=== PATIENT | female | born 1960 | race Caucasian/White ===

== ENCOUNTER 2019-12-24 00:58 | Emergency (ER) | payer MEDICARE, SELFPAY ==
--- NOTE | ~2019-12-24 | XR_ITS ---
EXAMINATION: XR hand RT min 3V DATE: 12/24/2019 01:25 INDICATION: Right hand pain. TECHNIQUE: 3 views of right hand were obtained. COMPARISON: None. FINDINGS: Bone alignment is normal. No fracture. There is a benign bone island in third distal phalan x. There is severe osteoarthritis of triscaphe joint and mild osteoarthritis of first carpometacarpal joint, first interphalangeal joint, and second, third, and fifth distal interphalangeal joints IMPRESSION: 1. Polyarticular osteoarthritis. Reviewed, dictated and finalized at location A.
--- NOTE | ~2019-12-24 | XR_ITS ---
EXAMINATION: XR wrist RT min 3V DATE: 12/24/2019 01:25 INDICATION: Right wrist pain. Fall. TECHNIQUE: 4 views of right wrist were obtained. COMPARISON: None. FINDINGS: Bone alignment is normal. No acute fracture. There is likely an old healed fracture of diap hysis of fifth metacarpal. There is severe osteoarthritis of triscaphe joint and mild osteoarthritis of first carpometacarpal joint. IMPRESSION: 1. Polyarticular osteoarthritis. Reviewed, dictated and finalized at location A.
--- NOTE | 2019-12-24 01:04 | ED.GENADULT ---
HPI - General Adult General Chief complaint: Extremity Injury, Upper Stated complaint: fall/ wrist pain Time Seen by Provider: 12/24/19 01:00 Source: patient Mode of arrival: ambulatory Limitations: no limitations History of Present Illness HPI narrative: Patient is a 59-year-old female with a history of rheumatoid arthritis who presents for evaluation of right wrist pain. Patient states she went to take out the garbage this morning, when she tripped on her dog, hit her right hand on the deck railing and then fell on an outstretched hand. She reports pain which is moderate in nature, worse with movement in her right hand and right wrist. She reports mild swelling, no redness. She has a scrape at her elbow, no elbow pain. She denies head trauma, loss of consciousness, headache pain, neck pain, chest pain. No prodromal symptoms. She is not dizzy. No numbness. Patient is right-hand dominant. Pt UTD on her tetanus. Related Data Allergies Allergy/AdvReac Type Severity Reaction Status Date / Time codeine Allergy Severe Anaphylaxis Verified 12/24/19 01:11 metoclopramide Allergy Severe RESTLESS Verified 12/24/19 01:11 FEELING morphine Allergy Severe Anaphylaxis Verified 12/24/19 01:11 Review of Systems Review of Systems: Narrative: CONSTITUTIONAL: Denies fever EYES: Denies visual changes ENT: Denies rhinorrhea, congestion, sore throat, or otalgia. CARDIOVASCULAR: Denies chest pain, palpitations, or edema. RESPIRATORY: Denies dyspnea. GASTROINTESTINAL: Denies abdominal pain SKIN: Abrasion to right elbow MUSCULOSKELETAL: Denies back pain, reports right hand and wrist pain NEUROLOGIC: Denies headache, numbness, or weakness. [facility] Past Medical History Medical History (Updated 12/24/19 @ 01:41 by Melania Pearce MD) Diabetes Hypothyroidism Rheumatoid arthritis Surgical History Surgical History (Updated 12/24/19 @ 01:07 by Melania Pearce MD) History of surgery on arm Family History Family History Father Hypertension Family history of elevated blood lipids Mother Family history of atrial fibrillation Other Family history of osteoarthritis Social History Social History Smoking status: Former smoker Second hand tobacco smoke exposure: Yes Smoking end date: 09/08/11 Alcohol intake: never Exam Narrative: Exam Narrative: GENERAL: Awake, alert, conversant HEAD: Normocephalic, atraumatic. EYES: PERRLA and EOMI. ENT: Nares clear, no rhinorrhea or epistaxis. Mucous membranes moist. NECK: Supple. CHEST: No respiratory distress, breathing even and non labored HEART: Regular rate, sinus rhythm ABDOMEN:Non distended, non tender EXTREMITIES: Decreased range of motion in the right hand due to pain. Tenderness over first through fifth metacarpals. No deformity. Radial pulses 2+. Intact sensation median, ulnar, radial nerve distribution. No edema or ecchymosis of the medial or lateral wrist. Tenderness at both the medial and lateral wrist. No supracondylar tenderness. Full range of motion at the elbow without limitation or pain. No tenderness or deformity at the shoulder. Abrasion to the elbow. No laceration. SKIN: Warm, dry, no rash. NEURO:No focal deficits. Alert and oriented x3. Ambulatory with a narrow base, steady gait. Course Vital Signs Vital signs: Vital Signs Temperature 36.7 C 12/24/19 01:05 Pulse Rate 108 H 12/24/19 01:05 Respiratory Rate 20 12/24/19 01:05 Blood Pressure 161/91 H 12/24/19 01:05 Pulse Oximetry 98 12/24/19 01:05 Temperature 36.7 C 12/24/19 01:05 Pulse Rate 108 H 12/24/19 01:05 Respiratory Rate 20 12/24/19 01:05 Blood Pressure 161/91 H 12/24/19 01:05 Pulse Oximetry 98 12/24/19 01:05 Procedures Orthopedic Splinting/Casting Injury #1: Splinting/Casting Date: 12/24/19 Splinting/Casting Time: 01:30 S
[2019-12-24 01:05] VITALS: BP 161/91; PULSE 108; RESP 20; TEMP 36.7; O2SAT 98
[2019-12-24 01:50] VITALS: BP 140/81; PULSE 99; RESP 18; O2SAT 97
== END 2019-12-24 01:52 | disposition home or self-care (01) ==
PROVIDERS: Emergency Provider Emergency Medicine; PCP Family Medicine
DX: S63.91XA Sprain of unspecified part of right wrist and hand, initial encounter (principal); M06.9 Rheumatoid arthritis, unspecified; E11.9 Type 2 diabetes mellitus without complications; E03.9 Hypothyroidism, unspecified; Z87.891 Personal history of nicotine dependence; W01.0XXA Fall on same level from slipping, tripping and stumbling without subsequent striking against object, initial encounter
CPT/HCPCS: 29125; 73110; 73130; 99283

== ENCOUNTER 2023-10-16 09:48 | Outpatient (CLI) | payer MEDICARE, SELFPAY ==
[2023-10-16 10:51] LABS: Basophils Absolute Auto 0.1 K/mm3 (0.0-0.1); Basophils Percent Auto 0.6 % (0.2-1.2); Eosinophils Absolute Auto 0.1 K/mm3 (0-0.3); Eosinophils Percent Auto 0.5 % (0-4.4); Hematocrit 44.7 % (37.0-47.0); Hemoglobin 14.6 g/dL (12.0-15.0); Immature Granulocyte Absolute 0.05 K/mm3 (0.00-0.031); Immature Granulocyte Percent A 0.3 % (0-0.5); Lymphocytes Absolute Auto 5.06 K/mm3 (0.9-3.2); Lymphocytes Percent Auto 33.9 % (18.3-44.2); Mean Corpuscular HGB Conc 32.7 g/dl (32-36); Mean Corpuscular Hemoglobin 28.8 pg (26-34); Mean Corpuscular Volume 88.2 fl (80-100); Mean Platelet Volume 10.2 fl (7.4-10.4); Monocytes Absolute Auto 0.7 K/mm3 (0.1-0.6); Monocytes Percent Auto 4.5 % (2.6-8.5); Neutrophils Percent Auto 60.2 % (45.5-73.1); Platelet Count Result 377 k/mm3 (150-375); Red Blood Count 5.07 M/mm3 (4.2-5.4); Red Cell Distribution Width 14.6 % (11.5-14.5); White Blood Count 14.9 K/mm3 (4.5-10.0)
[2023-10-16 10:56] LABS: Alanine Aminotransferase 63 U/L (6-35); Albumin Level 4.4 g/dL (3.5-5.1); Alkaline Phosphatase 124 U/L (38-126); Anion Gap 9 mmol/L (8-16); Aspartate Amino Transferase 34 U/L (14-36); Bilirubin,Total 0.4 mg/dL (0.2-1.3); Blood Urea Nitrogen 22 mg/dL (7-17); Calcium 9.9 mg/dL (8.4-10.2); Carbon Dioxide 23 mmol/L (22-30); Chloride 105 mmol/L (98-107); Cholesterol 144 mg/dL (0-200); Estimated Glomerular Filt Rate > 60; Glucose 127 mg/dL (65-110); HDL Direct 45 mg/dL; Sodium 137 mmol/L (137-145); Triglycerides 105 mg/dL (<150)
[2023-10-16 11:00] LABS: Hemoglobin A1C 5.6 % (<5.7)
[2023-10-16 11:07] LABS: LDL Cholesterol Direct 61 mg/dL
[2023-10-16 11:17] LABS: Free T4 Free Thyroxine 1.05 ng/mL (0.78-2.19)
[2023-10-16 11:26] LABS: Thyroid Stimulating Hormone < 0.015 uIU/mL (0.465-4.680)
[2023-10-19 05:05] LABS: Triiodothyronine T3 Free 3.3 pg/mL (2.3-4.2)
== END 2023-10-16 09:49 | disposition home or self-care (01) ==
PROVIDERS: PCP Family Medicine; Visit Provider Physician Assistant
DX: E03.8 Other specified hypothyroidism (principal); E06.3 Autoimmune thyroiditis; E11.65 Type 2 diabetes mellitus with hyperglycemia; E78.2 Mixed hyperlipidemia; F33.1 Major depressive disorder, recurrent, moderate; E07.9 Disorder of thyroid, unspecified; M05.79 Rheumatoid arthritis with rheumatoid factor of multiple sites without organ or systems involvement; E66.01 Morbid (severe) obesity due to excess calories
CPT/HCPCS: 36415; 80053; 80061; 83036; 84439; 84443; 84481; 85025

== ENCOUNTER 2024-02-13 08:17 | Outpatient (CLI) | payer MEDICARE, SELFPAY ==
[2024-02-13 11:49] LABS: Free T4 Free Thyroxine 0.92 ng/mL (0.78-2.19)
[2024-02-14 19:33] LABS: Triiodothyronine T3 Free 2.6 pg/mL (2.3-4.2)
== END 2024-02-13 08:18 | disposition home or self-care (01) ==
PROVIDERS: PCP Family Medicine; Visit Provider Family Medicine
DX: E07.9 Disorder of thyroid, unspecified (principal); E03.8 Other specified hypothyroidism; E06.3 Autoimmune thyroiditis
CPT/HCPCS: 36415; 84439; 84443; 84481

== ENCOUNTER 2025-01-13 14:17 | Outpatient (CLI) | payer MEDICARE, SELFPAY ==
--- OUTSIDE RECORDS SUMMARY | 2025-01-13 14:22 | XMS_ITS | Encounter Summary ---
Author Organization [facility] Address [address] [place] [address] Phone Care Team Providers Care Named Account Executive Name Role Phone Stormy Coronado MD Primary Care Provider Encounter Details Date Type Department Care Team (Late st Contact Info) Description 11/30/2024 Results Follow-Up 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
--- OUTSIDE RECORDS SUMMARY | 2025-01-13 14:22 | XMS_ITS | Clinical Summary ---
Author Organization [facility] Address [address] [place] [address] Care Team Providers Care Development Associate Name Role Phone Stormy Coronado MD Primary Care Provider Allergies Active Allergy Reactions Criticality Noted Date Comments Codeine Unknown 03/31/2015 Morphine Stomach upset,Swelling Medium Medications citalopram (CeleXA) 20 mg tablet 8 Active fluticasone (FLONASE) 50 mcg/actuation nasal spray 8 Active LASER PRINT OPERATOR Thyroid 90 mg tablet Take 1 tablet (90 mg total) by mouth daily 4 Active Mounjaro 7.5 mg/0.5 mL pen injector 4 Active diclofenac sodium (VOLTAREN) 1 % gel Apply 4 g topically 4 (four) times a day 200 g 11 5 11/24/19 26 Active abatacept (ORENCIA) 250 mg injection Infuse 30 mL (750 mg total) into a venous catheter Given at [facility]. 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 Patient has had baseline CBC, CMP, HBV, HCV and TB screening. -yearly eye exams while on hydroxychloroquine -CBC and CMP every 3 months -Ok to continue above medications Assessment & Plan (05/03/2021 10:13 PM CDT): On Orencia and SSZ for RA. Patient has had baseline CBC, CMP, HBV, HCV and TB screening. -CBC and CMP every 3 months -Ok to continue above medications Weight loss 03/29/2020 Night sweats 03/29/2020 Rheumatoid arthritis 02/10/2020 Assessment & Plan (10/12/2021 12:39 PM EXPENDITURE REQUISITION CLERK): She has failed multiple DMARDs in the past but is fairly well controlled on her current regimen. He last xrays indicated a singular erosion in the left triquetral bone verses cyst. She is interested in starting an additional medication to try better control remaining symptoms. -Continue Sulfasalazine 1.5g BID, Orencia 125 mg weekly -start hydroxychloroquine 400 mg daily -Xrays of hands and wrists at next visit Assessment & Plan (05/04/2021 10:55 AM CDT): She has failed multiple DMARDs in the past but is well controlled on her current regimen. He last xrays indicated a singular erosion in the left triquetral bone. -Continue Sulfasalazine 1.5g BID, Orencia 125 mg weekly -Can consider HCQ at next visit in 3 months -Xrays of hands and wrists at next visit She does not yet qualify for booster vaccination since she received the J&J vaccine previously. She will get the booster as soon as this is recommended. I advised her to call if she gets exposed to COVID-19 or develops symptoms consistent with COVID- 19 as she would likely qualify for monoclonal antibody treatment. Leukocytosis 02/10/2020 Neutrophilia 02/10/2020 Encounters Date Type Department Care Team Description 12/23/2024 2:18 PM CDT - 12/23/2024 11:59 PM CDT Hospital Encounter [address] [address] Rheumatoid arthritis of multiple sites with negative rheumatoid factor (HCC) (Primary Dx) Discharge Disposition: Discharge to home or self care 11/30/2024 Results Follow-Up [facility] Rheumatology [facility] [facility] 5th [place] [address] [place] [address] Celestino Mcelroy MD PhD 11/25/2024 12:56 PM CDT - 11/25/2024 11:59 PM CDT Hospital Encounter [address] [address] Rheumatoid arthritis of multiple sites with negative rheumatoid factor (HCC) (Primary Dx); High risk medication use Discharge Disposition: Discharge to home or self care 11/23/2024 2:30 PM CDT Office Visit [facility] Rheumatology [facility] [facility] 5[address] [place] [address] Celetsino Mcelroy MD PhD Rheumatoid arthritis of multiple sites with negative rheumatoid factor (HCC) (Primary Dx); 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; High risk medication use; Rotator cuff arthropathy of left shoulder; Calcific tendinitis of both shoulders from Last 3 Months Immunizations Immunization Administration Dates Next Due SWYF (J&J) SARS-CoV-2 Vaccination 07/12/2021 Surgical History Surgery Date Site/Laterality Comments [place] REPAIR TENDON/MUSCLE UPPE R ARM/ELBOW EA TDN/MUSC Repair Tendon / Muscle Of Upper Arm - (Added by TW Conv) [place] TONSILLECTOMY PRIMARY/SEC ONDARY AGE 13/> Tonsillectomy Over Age 12 - (Added by TW Conv) [place] CHOLECYSTECTOMY Cholecystectomy - (Added by TW Conv) Medical History Medical History Date Comments Major depressive disorder, s radha episode Depression - (Added by TW Co nv) Personal history of other en docrine, nutritional and metabolic disease History of hypothyro idism - (Added by TW Conv) Personal history of other en docrine, nutritional and metabolic disease History of diabetes mellitus - (Added by TW Conv) Other cervical disc degenera tion, unspecified cervical region DDD (degenerative disc dis ease), cervical - (Added by TW Conv) Other intervertebral disc degeneration, lumbar region DDD (degenerative disc dis ease), lumbar - (Added by TW Conv) Osteoporosis 2014 Thyroid disease 1988 Diabetes mellitus (HCC) May 2019 Autoimmune disease 2015 Family History Medical History Relation Name Comments Arthritis Father Herminio Family history of arthritis - (Added by TW Conv) Hearing loss Father Herminio Osteoarthritis Father Herminio Family histor y of osteoarthritis - (Added by TW Conv) Rheum arthritis Father Herminio Family histo ry of rheumatoid arthritis - (Added by TW Conv) Alzheimer's disease Mother Kimberli Arthritis Mother Kimberli Family history of arthritis - (Added by TW Conv) COPD Mother Kimberli Osteoarthritis Mother Kimberli Family histor y of osteoarthritis - (Added by TW Conv) Fibromyalgia Sister Family history of fibromyalgia - (Added by TW Conv) Relation Name Status Comments Father Herminio Mother Kimberli Sister Social History Tobacco Use Types Packs/Day Years Used Date Smoking Tobacco: Former Smokeless Tobacco: Never Tobacco Cessation:Counseling Given: Not Answered Comments Unknown Sex and Gender Information Value Date Recorded Sex Assigned at Not on file Legal Sex Female 1:06 AM EXPENDITURE REQUISITION CLERK Gender Identity Female 01/16/2019 10:32 AM CDT Sexual Orientation Choose not to disclose 2018 10:32 AM CDT Obstetrics History Last Filed Vital Signs Vital Sign Reading Time Taken Comments Blood Pressure 114/58 12/23/2024 2:25 PM CDT Pulse 83 12/23/2024 2:25 PM CDT Temperature 37.1 C (98.7 F) 12/23/2024 2:25 PM CDT Respiratory Rate 18 12/23/2024 2:25 PM CDT Oxygen Saturation 99% 12/23/2024 2:25 PM CDT Inhaled Oxygen Concentration - - Weight 89.2 kg (196 lb 9.6 oz) 12/23/2024 2:30 P M CDT Height 154.9 cm (5' 1 ) 11/23/2024 2:10 PM CDT Body Mass Index 37.15 11/23/2024 2:10 PM CDT Plan of Treatment Health Maintenance Due Date Last Done Comments Breast Cancer Screening-Mammogram 1961 Cervical Cancer Screening 1961 Colon Cancer Screening-Colonoscopy 1961 Depression Screening 1961 DTaP/Tdap/Td Vaccine (1 - Tdap) 1972 Hepatitis B Screening 1979 Regular Well Visit/Exam 18-64 1979 Zoster Vaccine (1 of 2) 05/23/2016 03/28/2016 Pneumococcal vaccine <65 (3 of 3 - PPSV23, PCV20 or PCV21) 09/24/2021 09/24/2016, 03/28/2016 Covid-19 Vaccine ( season) 05/09/202412/2020, 11/14/2020 Influenza Vaccine (Season Ended) 2025 Hepatitis C Screening Completed 04/24/2016, 015 Procedures Procedure Name Priority Date/Time Associated Diagnosis Comments EGFR Routine 11/25/2024 1:15 PM CDT Rheumatoid arthritis of multiple sites with negative rheumatoid factor (HCC) High risk medication use DIFFERENTIAL AUTO Routine 11/25/2024 1:1 5 PM CDT Rheumatoid arthritis of multiple sites with negative rheumatoid factor (HCC) High risk medication use CBC WITH AUTO DIFFERENTIAL Routine 11/25/2024 1:15 PM CDT Rheumatoid arthritis of multiple sites with negative rheumatoid factor (HCC) High risk medication use COMPREHENSIVE METABOLIC PANEL Routine 11/25/2024 1:15 PM CDT Rheumatoid arthritis of multiple sites with negative rheumatoid factor (HCC) High risk medication use ERYTHROCYTE SEDIMENTATION RATE Routine 11/25/2024 1:15 PM CDT Rheumatoid arthritis of multiple sites with negative rheumatoid factor (HCC) CRP (ACUTE PHASE) Routine 11/25/2024 1:1 5 PM CDT Rheumatoid arthritis of multiple sites with negative rheumatoid factor (HCC) SERUM HEPATITIS PANEL Routine 04/24/2016 10:18 AM CDT from Last 3 Months or Most Recently Relevant to Health Maintenance Results * eGFR (11/25/2024 1:15 PM CDT) eGFR >90 >=60 mL/min/1. 73 m2 Comment: Interpretive Data Reference Interval Normal >/= 90 mL/min/1.73m2 Mildly decreased* 60 - 89 mL/min/1.73m2 Mildly to moderately decreased 45 - 59 mL/min/1.73m2 Moderately to severely decreased 30 - 44 mL/min/1.73m2 Severely decreased 15 - 29 mL/min/1.73m2 Kidney Failure < 15 mL/min/1.73m2 *Relative to young adult level Estimated glomerular filtration rate is determined by the 2020 CKD-EPI equation recommended by the National Kidney Foundation (A Unifying Approach to GFR Estimation: Recommendations of the NKF-ASK Task Force on Reassessing the Inclusion of Race in Diagnosing Kidney Disease, JASN 2020). The CKD-EPI equation should not be used for patients with unstable renal function and has not been validated in children and those over 70. Current interpretive data was last reviewed 2021. Blood 11/25/2024 1:15 PM CDT 11/25/2024 1:19 PM CDT us Celestino Mcelroy MD PhD LAB BLOOD ORDERABLE S Final Result [facility] [address] [place] [address] * (ABNORMAL) Differential, auto (11/25/2024 1:15 PM CDT) Pathologist [facility] Neutrophil abs 8.0(H) 1.5 - 6.5 K/cumm Imm gran abs 0.0 0.0 - 0.1 K/cumm [facility] Lymphocyte abs 4.7(H) 0.8 - 3.3 K/cumm [facility] Monocyte abs 0.7 0.2 - 0.8 K/cumm [facility] Eosinophil abs 0.1 0.0 - 0.5 K/cumm [facility] Basophil abs 0.1 0.0 - 0.1 K/cumm [facility] Neutrophil pct 58.8 % [facility] Comment: Interpretive Data Percent cell count reference ranges are not reported, since discordance with absolute values may lead to misinterpretation of CBC data. Current Interpretive Data was last revised on 2017. Imm gran pct 0.2 % [facility] Comment: Interpretive Data Percent cell count reference ranges are not reported, since discordance with absolute values may lead to misinterpretation of CBC data. Current Interpretive Data was last revised on 2017. Lymphocyte pct 34.6 % [facility] Comment: Interpretive Data Percent cell count reference ranges are not reported, since discordance with absolute values may lead to misinterpretation of CBC data. Current Interpretive Data was last revised on 2017. Monocyte pct 5.1 % [facility] Comment: Interpretive Data Percent cell count reference ranges are not reported, since discordance with absolute values may lead to misinterpretation of CBC data. Current Interpretive Data was last revised on 2017. Eosinophil pct 0.6 % [facility] Comment: Interpretive Data Percent cell count reference ranges are not reported, since discordance with absolute values may lead to misinterpretation of CBC data. Current Interpretive Data was last revised on 2017. Basophil pct 0.7 % [facility] Comment: Interpretive Data Percent cell count reference ranges are not reported, since discordance with absolute values may lead to misinterpretation of CBC data. Current Interpretive Data was last revised on 2017. Blood 11/25/2024 1:15 PM CDT 11/25/2024 1:19 PM CDT us Celestino Mcelroy MD PhD LAB BLOOD ORDERABLE S Final Result [facility] [address] [place] [address] * (ABNORMAL) CBC with auto differential (11/25/2024 1:15 PM CDT) WBC 13.6(H) 3.8 - 9.9 K/cumm Hgb 15.7(H) 11.9 - 15.5 g/dL [facility] Hct 46.1(H) 35.6 - 45.5 % [facility] Plt 309 150 - 400 K/cumm [facility] MPV 9.8 9.1 - 12.3 fL [facility] RBC 5.20 3.90 - 5.20 M/cumm [facility] MCV 88.7 81.3 - 96.4 fL [facility] MCH 30.2 27.1 - 33.3 pg [facility] MCHC 34.1 32.3 - 35.7 g/dL [facility] RDW CV 13.3 11.1 - 14.9 % [facility] RDW SD 43.2 35.7 - 48.1 fL [facility] NRBC abs 0.00 0.00 - 0.01 K/cumm [facility] Blood 11/25/2024 1:15 PM CDT 11/25/2024 1:19 PM CDT Celestino Mcelroy MD PhD LAB BLOOD ORDERABLE S Final Result Performing Organization Address [facility] Co de Phone Number [address] [place] [address] * (ABNORMAL) Erythrocyte sedimentation rate (11/25/2024 1:15 PM CDT) [facility] Erythrocyte sedimentation rate 47(H) 1 - 30 mm/hr Blood 11/25/2024 1:15 PM CDT 11/25/2024 1:19 PM CDT Celestino Mcelroy MD PhD LAB BLOOD ORDERABLE S Final Result Performing Organization Address [facility] de Phone Number [address] [place] [address] * CRP (acute phase) (11/25/2024 1:15 PM CDT) [facility] CRP 5.6 <=10.0 mg/L Blood 11/25/2024 1:15 PM CDT 11/25/2024 1:19 PM CDT Celestino Mcelroy MD PhD LAB BLOOD ORDERABLE S Final Result Performing Organization Address [facility] de Phone Number [address] [place] [address] * (ABNORMAL) Comprehensive metabolic panel (11/25/2024 1:15 PM CDT) Pathologist [facility] Sodium 133(L) 135 - 145 mmol/L Potassium, pl 4.7 3.3 - 4.9 mmol/L [facility] Comment:Hemolyzed; Potassium value may be falsely elevated by as much as 1.0 mmol/L. Suggest redraw and reanalysis. Chloride 98 97 - 110 mmol/L [facility] CO2 24 22 - 32 mmol/L [facility] Anion gap 11 2 - 15 mmol/L [facility] BUN 20 6 - 25 mg/dL [facility] Creatinine 0.49(L) 0.60 - 1.10 mg/dL [facility] Glucose 143 70 - 199 mg/dL [facility] Comment: Interpretive Data Fasting glucose >/= 126 mg/dl is diagnostic for diabetes. Fasting is defined as no caloric intake for at least 8 hours. Fasting glucose between 100 mg/dl to 125 mg/dl is diagnostic of prediabetes. In a patient with classic symptoms of hyperglycemia or hyperglycemic crisis, a random glucose >/= 200 mg/dl is diagnostic for diabetes. In the absence of unequivocal hyperglycemia, results should be confirmed by repeat testing. The classification and Diagnosis of Diabetes Diabetes Care 2021; 46: S19-S40. Current interpretive data was last revised 2022. Calcium 9.7 8.5 - 10.3 mg/dL [facility] Bilirubin, total 0.2 0.1 - 1.2 mg/dL [facility] Protein, pl 7.4 6.5 - 8.5 g/dL [facility] Albumin 3.7 3.5 - 5.0 g/dL [facility] Alk phos 126 40 - 130 Units/L [facility] ALT 27 7 - 45 Units/L [facility] AST See Comment 10 - 45 [facility] Comment:Credited; Hemolyzed Specimen Blood 11/25/2024 1:15 PM CDT 11/25/2024 1:19 PM CDT us Celestino Mcelroy MD PhD LAB BLOOD ORDERABLE S Final Result [facility] [address] [place] [address] * Serum Hepatitis panel (04/24/2016 10:18 AM CDT) HBV surface ag Negative NEG CDR H ISTORICAL RESULTS HCV ab Negative NEG CDR HISTOR ICAL RESULTS Comment: Interpretive Data Positive results should be confirmed by a molecular method. If positive, a second separately collected sample should be submitted for Hepatitis C Virus (HCV) RNA Detection and Quantitation by Real-Time Reverse Machine Try Out Setter-PCR (RT-PCR). Current interpretive data was last revised on 2016. HBV core ab, IgM Negative NEG CDR HISTORICAL RESULTS Comment: Interpretive Data If test is reported as Equivocal, new sample should be drawn for testing. Current interpretive data was last revised on 2008. HAV ab, IgM Negative NEG CDR HIST ORICAL RESULTS Comment: Interpretive Data If test is reported as Equivocal, new sample should be drawn in two weeks for testing. Current interpretive data was last revised on 2008. Serum 04/24/2016 10:1 8 AM CDT Kenna Kraft MD LAB BLOOD ORDERABLES Mohini moreno Result CDR HISTORICAL RESULTS from Last 3 Months or Most Recently Relevant to Health Maintenance Insurance [employer] MEDICARE PPO [employer] MED[employer] PPO [employer] MEDICARE PPO IDPA Care Teams Development Associate Relationship Specialty Start Date End Date Stormy Coronado MD [address] [facility] [address] [place] [address] PCP - General 12/27/16
--- OUTSIDE RECORDS SUMMARY | 2025-01-13 14:22 | XMS_ITS | Clinical Summary ---
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
--- OUTSIDE RECORDS SUMMARY | 2025-01-13 14:22 | XMS_ITS | Referral Summary ---
Author Organization [facility] Address [address] [place] [address] Care Team Providers Care Chief Clinical Officer Name Role Phone Stormy Coronado MD Primary Care Provider Encounters Date Type Department Care Team Description 12/23/2024 2:18 PM CDT - 12/23/2024 11:59 PM CDT Hospital Encounter [place] [address] [place] [address] Rheumatoid arthritis of multiple sites with negative rheumatoid factor (HCC) (Primary Dx) Discharge Disposition: Discharge to home or self care 11/30/2024 Results Follow-Up [facility] Rhe[facility] [address] [place] [address] [place] [address] Celestino Mcelroy MD PhD 11/25/2024 12:56 PM CDT - 11/25/2024 11:59 PM CDT Hospital Encounter [place] [address] [place] [address] Rheumatoid arthritis of multiple sites with negative rheumatoid factor (HCC) (Primary Dx); High risk medication use Discharge Disposition: Discharge to home or self care 11/23/2024 2:30 PM CDT Office Visit [facility] Rhe[facility] [address] [place] [address] [place] [address] Celestino Mcelroy MD PhD Rheumatoid arthritis of multiple sites with negative rheumatoid factor (HCC) (Primary Dx); [facility] (current) use of immunosuppressive biologic; High risk medication use; Rotator cuff arthropathy of left shoulder; Calcific tendinitis of both shoulders from Last 3 Months Allergies Active Allergy Reactions Criticality Noted Date Comments Codeine Unknown 03/31/2015 Morphine Stomach upset,Swelling Medium Medications citalopram (CeleXA) 20 mg tablet 8 Active fluticasone (FLONASE) 50 mcg/actuation nasal spray 8 Active CLINICAL REIMBURSEMENT SPECIALIST Thyroid 90 mg tablet Take 1 tablet (90 mg total) by mouth daily 4 Active Mounjaro 7.5 mg/0.5 mL pen injector 4 Active diclofenac sodium (VOLTAREN) 1 % gel Apply 4 g topically 4 (four) times a day 200 g 11 5 11/24/19 26 Active abatacept (ORENCIA) 250 mg injection Infuse 30 mL (750 mg total) into a venous catheter Given at [facility]. Active Active Problems Problem Noted Date Diagnosed Date Calcific tendinitis of both shoulders 01/16/2024 Rotator cuff arthropathy of left shoulder 2023 MCC (current) use of immunosuppressive bio logic 01/16/2024 High risk medication use 05/03/2021 Assessment & Plan (10/12/2021 12:38 PM COW TRIMMER): On Orencia and SSZ and is starting [...] 02/10/2020 Assessment & Plan (10/12/2021 12:39 PM COW TRIMMER): She has failed multiple DMARDs in the [...] monoclonal antibody treatment. Leukocytosis 02/10/2020 Neutrophilia 02/10/2020 Immunizations Immunization Administration Dates Next Due Keecker (J&J) SARS-CoV-2 Vaccination 07/12/2021 Social History Tobacco Use Types Packs/Day Years Used Date Smoking Tobacco: Former Smokeless Tobacco: Never Tobacco Cessation:Counseling Given: Not Answered Comments Unknown Sex and Gender Information Value Date Recorded Sex Assigned at Not on file Legal Sex Female 1:06 AM COW TRIMMER Gender Identity Female 01/16/2019 10:32 AM CDT Sexual Orientation Choose not to disclose 2018 10:32 AM CDT Last Filed Vital Signs Vital Sign Reading [...] 11/23/2024 2:10 PM CDT Plan of Treatment Not on file Procedures Procedure Name Priority Date/Time Associated Diagnosis [...] of Race in Diagnosing Kidney Disease, JASN 202). The CKD-EPI equation should not be used for patients with unstable renal function and has not been validated in children and those over 70. Current interpretive data was last reviewed 2021. Blood 11/25/2024 1:15 PM CDT 11/25/2024 1:19 PM CDT us Celestino Mcelroy MD PhD LAB BLOOD ORDERABLE S Final Result [place] [id number] [facility] [place] [address] * (ABNORMAL) Differential, auto (11/25/2024 1:15 PM CDT) Neutrophil abs 8.0(H) 1.5 - 6.5 K/cumm Imm gran abs 0.0 0.0 - 0.1 K/cumm [facility] Lymphocyte abs 4.7(H) 0.8 - 3.3 K/cumm [facility] Monocyte abs 0.7 0.2 - 0.8 K/cumm [facility] Eosinophil abs 0.1 0.0 - 0.5 K/cumm [facility] Basophil abs 0.1 0.0 - 0.1 K/cumm [facility] Neutrophil pct 58.8 % [facility] Comment: Interpretive Data Percent cell count reference ranges are not reported, since discordance with absolute values may lead to misinterpretation of CBC data. Current Interpretive Data was last revised on 2017. Imm gran pct 0.2 % [facility] Comment: Interpretive Data Percent cell count reference ranges are not reported, since discordance with absolute values may lead to misinterpretation of CBC data. Current Interpretive Data was last revised on 2017. Lymphocyte pct 34.6 % [facility] Comment: Interpretive Data Percent cell count reference ranges are not reported, since discordance with absolute values may lead to misinterpretation of CBC data. Current Interpretive Data was last revised on 2017. Monocyte pct 5.1 % [facility] Comment: Interpretive Data Percent cell count reference ranges are not reported, since discordance with absolute values may lead to misinterpretation of CBC data. Current Interpretive Data was last revised on 2017. Eosinophil pct 0.6 % [facility] Comment: Interpretive Data Percent cell count reference ranges are not reported, since discordance with absolute values may lead to misinterpretation of CBC data. Current Interpretive Data was last revised on 2017. Basophil pct 0.7 % [facility] Comment: Interpretive Data Percent cell count reference ranges are not reported, since discordance with absolute values may lead to misinterpretation of CBC data. Current Interpretive Data was last revised on 2017. Blood 11/25/2024 1:15 PM CDT 11/25/2024 1:19 PM CDT us Celestino Mcelroy MD PhD LAB BLOOD ORDERABLE S Final Result [facility] [address] [facility] [place] [address] * (ABNORMAL) CBC with auto differential (11/25/2024 1:15 PM CDT) WBC 13.6(H) 3.8 - 9.9 K/cumm Hgb 15.7(H) 11.9 - 15.5 g/dL [facility] Hct 46.1(H) 35.6 - 45.5 % [facility] Plt 309 150 - 400 K/cumm [facility] MPV 9.8 9.1 - 12.3 fL [facility] RBC 5.20 3.90 - 5.20 M/cumm [facility] MCV 88.7 81.3 - 96.4 fL [facility] MCH 30.2 27.1 - 33.3 pg [facility] MCHC 34.1 32.3 - 35.7 g/dL [facility] RDW CV 13.3 11.1 - 14.9 % [facility] RDW SD 43.2 35.7 - 48.1 fL [facility] NRBC abs 0.00 0.00 - 0.01 K/cumm [facility] Blood 11/25/2024 1:15 PM CDT 11/25/2024 1:19 PM CDT Celestino Mcelroy MD PhD LAB BLOOD ORDERABLE S Final Result Performing Organization Address [facility] Co de Phone Number [address] [place] [address] * (ABNORMAL) Erythrocyte sedimentation rate (11/25/2024 1:15 PM CDT) [facility] Erythrocyte sedimentation rate 47(H) 1 - 30 mm/hr Blood 11/25/2024 1:15 PM CDT 11/25/2024 1:19 PM CDT Celestino Mcelroy MD PhD LAB BLOOD ORDERABLE S Final Result Performing Organization Address [facility] Co de Phone Number [address] [place] [address] * CRP (acute phase) (11/25/2024 1:15 PM CDT) [facility] CRP 5.6 <=10.0 mg/L Blood 11/25/2024 1:15 PM CDT 11/25/2024 1:19 PM CDT Ceelstino Mcelroy MD PhD LAB BLOOD ORDERABLE S Final Result Performing Organization Address [facility] de Phone Number [address] [place] [address] * (ABNORMAL) Comprehensive metabolic panel (11/25/2024 1:15 PM CDT) [facility] Sodium 133(L) 135 - 145 mmol/L Potassium, pl 4.7 3.3 - 4.9 mmol/L [facility] Comment:Hemolyzed; Potassium value may be falsely elevated by as much as 1.0 mmol/L. Suggest redraw and reanalysis. Chloride 98 97 - 110 mmol/L [facility] CO2 24 22 - 32 mmol/L [facility] Anion gap 11 2 - 15 mmol/L [facility] BUN 20 6 - 25 mg/dL [facility] Creatinine 0.49(L) 0.60 - 1.10 mg/dL [facility] Glucose 143 70 - 199 mg/dL [facility] Comment: Interpretive Data Fasting glucose >/= [...] classification and Diagnosis of Diabetes Diabetes Care 202; 46: S19-S40. Current interpretive data was last revised 2022. Calcium 9.7 8.5 - 10.3 mg/dL [facility] Bilirubin, total 0.2 0.1 - 1.2 mg/dL [facility] Protein, pl 7.4 6.5 - 8.5 g/dL [facility] Albumin 3.7 3.5 - 5.0 g/dL [facility] Alk phos 126 40 - 130 Units/L [facility] ALT 27 7 - 45 Units/L [facility] AST See Comment 10 - 45 [facility] Comment:Credited; Hemolyzed Specimen Blood 11/25/2024 1:15 PM CDT 11/25/2024 1:19 PM CDT us Celestino Mcelroy MD PhD LAB BLOOD ORDERABLE S Final Result [facility] [address] [facility] [place] [address] * Serum Hepatitis panel (04/24/2016 10:18 AM CDT) HBV surface ag Negative NEG CDR H ISTORICAL RESULTS HCV ab Negative NEG CDR HISTOR ICAL RESULTS Comment: Interpretive Data Positive results should be confirmed by a molecular method. If positive, a second separately collected sample should be submitted for Hepatitis C Virus (HCV) RNA Detection and Quantitation by Real-Time Reverse Human Anatomy Teacher-PCR (RT-PCR). Current interpretive data was last revised [...] Most Recently Relevant to Health Maintenance Insurance [employer] MEDICARE PPO [employer] CHO[employer] MEDICARE PPO [employer] MEDICARE PPO IDPA Care Teams Chief Clinical Officer Relationship Specialty Start Date End Date Stormy Coronado MD [address] [facility] [address] [place], [place] [id number] PCP - General 12/27/16
[2025-01-13 14:44] LABS: Hematocrit 46.1 % (37.0-47.0); Hemoglobin 15.4 g/dL (12.0-15.0); Mean Corpuscular HGB Conc 33.4 g/dl (32-36); Mean Corpuscular Hemoglobin 29.7 pg (26-34); Mean Corpuscular Volume 88.8 fl (80-100); Mean Platelet Volume 9.5 fl (7.4-10.4); Platelet Count Result 300 k/mm3 (150-375); Red Blood Count 5.19 M/mm3 (4.2-5.4); Red Cell Distribution Width 13.7 % (11.5-14.5); White Blood Count 15.2 K/mm3 (4.5-10.0)
[2025-01-13 14:57] LABS: Alanine Aminotransferase 21 U/L (6-35); Albumin Level 4.4 g/dL (3.5-5.1); Alkaline Phosphatase 111 U/L (38-126); Anion Gap 8 mmol/L (4-12); Aspartate Amino Transferase 25 U/L (14-36); Bilirubin,Total 0.5 mg/dL (0.2-1.3); Blood Urea Nitrogen 26 mg/dL (7-17); Calcium 9.5 mg/dL (8.4-10.2); Carbon Dioxide 26 mmol/L (22-30); Chloride 102 mmol/L (98-107); Cholesterol 284 mg/dL (0-200); Estimated Glomerular Filt Rate > 60; Glucose 129 mg/dL (65-110); HDL Direct 55 mg/dL; Potassium 4.1 mmol/L (3.4-5.0); Sodium 136 mmol/L (137-145); Triglycerides 172 mg/dL (<150)
[2025-01-13 15:08] LABS: LDL Cholesterol Direct 160 mg/dL
[2025-01-13 15:47] LABS: Free T4 Free Thyroxine 0.96 ng/dL (0.78-2.19)
[2025-01-13 16:11] LABS: Creatinine Urine 95.4 mg/dL
[2025-01-13 16:12] LABS: MALB Creatinine Ratio 9.5 mg/g (0-30); Microalbumin Urine Random 9.1 mg/L (0-16.7)
[2025-01-13 16:51] LABS: Hemoglobin A1C 6.6 % (<5.7)
== END 2025-01-13 14:18 | disposition home or self-care (01) ==
PROVIDERS: PCP Family Medicine; Visit Provider Family Medicine
DX: E78.2 Mixed hyperlipidemia (principal); E11.65 Type 2 diabetes mellitus with hyperglycemia; E03.8 Other specified hypothyroidism; E06.3 Autoimmune thyroiditis
CPT/HCPCS: 36415; 80053; 80061; 82043; 83036; 84439; 84443; 85027